=== PATIENT | female | born 2000 | race Two or more races ===

== ENCOUNTER 2024-12-23 17:44 | Inpatient (IN) | payer OTHER ==
[~2024-12-23] VITALS: Ht 160 cm; Wt 49.9 kg
--- NOTE | 2024-12-23 17:55 | NUR ---
SE RECIBE PACIENTE ALERTA Y CONCIENTE X 3. EL MISMO REFIERE TENER INFECCION DE ORINA HACE 6 PARMAR, AL SEXTO JOAQUIM REFIERE NNEKA RODNEY EN LA ORINA. SE PROCEDE A RAMÓN S/V A LA PACIENTE Y SE UBICA.
--- NOTE | 2024-12-23 18:37 | NUR ---
PTE EVALUADA POR EL GISELLE INMAN QUIE ORDENA TRATAMEINTO LA CUAL SE EJECUTA. SE MANTIENE BAJO OBSERVACION.
[2024-12-23 18:39] LABS: BASO % 0.4 % (0.1-1.2); EOS # 0.08 (0.04-0.54); HEMATOCRIT 36.7 % (34.1-44.9); HEMOGLOBIN 12.4 g/dL (11.2-15.7); LYMPH # 1.86 (1.18-3.74); LYMPH % 22.3 % (19.3-53.1); MEAN CORPUSCULAR HEMOGLOBIN 28.8 pg (25.6-32.2); MONO # 0.64 (0.24-0.82); MONO % 7.7 % (4.7-12.5); NEUT # 5.73 (1.56-6.13); NEUT % 68.5 % (34.0-71.1); PLATELET COUNT 204 K/uL (163-369); RED CELL DISTRIBUTION WIDTH 11.1 % (11.6-14.4)
[2024-12-23 18:44] LABS: PH,URINE 5.5 (5.0-8.0); URINE APPEARANCE Turbid; URINE BACTERIA 2106.4 uL (0.0-1933); URINE BILIRRUBIN Negative (NEGATIVE); URINE BLOOD Large; URINE COLOR Yellow; URINE EPITHELIAL CELLS 16.6 uL (0.0-38.8); URINE GLUCOSE Negative (NEGATIVE); URINE KETONE Negative (NEGATIVE); URINE LEUKOCYTE Large; URINE NITRATE Negative; URINE PROTEIN 30 (NEGATIVE)
[2024-12-23 18:45] LABS: URINE WBC > 5548.3 uL (0.0-23.2)
[2024-12-23 19:01] LABS: BILIRUBIN TOTAL 0.23 mg/dL (0.3-1.2); CALCIUM 8.6 mg/dL (8.5-10.1); CREATININE SERUM 0.77 mg/dL (0.55-1.02); GFR 91.34; GLOBULINA 3.6 G/DL (2.4-3.5); POTASSIUM 4.16 mEq/L (3.5-5.1); TOTAL PROTEIN 7.6 gm/dL (6.4-8.2)
[2024-12-23] MEDS ORDERED: CEFTRIAXONE SODIUM 2,000 MG VIAL ONE (19:57)
[2024-12-23] MEDS ORDERED: CEFTRIAXONE SODIUM 2,000 MG VIAL IV ONE (20:00)
[2024-12-23] MEDS ORDERED: KETOROLAC TROMETHAMINE 30 MG VIAL IV ONE (20:00)
[2024-12-23] MEDS ORDERED: MORPHINE SULFATE 2 MG/ML SYRINGE IV ONE (20:00)
--- NOTE | 2024-12-23 20:24 | NUR ---
PTE SE LE YENNIFER MUESTRA DE RODNEY Y SE LE ADMINISTRA MEDICMANTOS PARA EL DOLOR DE MORFINA. SE MANTIENE EN ESPERA DE ESTUDIO DE CT SCAN.
[2024-12-23] MEDS ORDERED: RINGERS SOLUTION,LACTATED 1,000 ML IV SCH (23:30)
[2024-12-23] MEDS ORDERED: ACETAMINOPHEN 500 MG GEL..CAP PO PRN (23:30)
[2024-12-23] MEDS ORDERED: PHENAZOPYRIDINE HCL 100 MG TABLET PO ONE (23:30)
[2024-12-24 02:58] VITALS: BP 116/76
[2024-12-24 04:08] LABS: INR 0.95; PARTIAL THROMBOPLASTIN TIME 28.5 SECONDS (22.0-34.0); PROTHROMBIN TIME 10.4 SECONDS (9.0-11.5)
[2024-12-24 05:30] VITALS: BP 100/56; O2SAT 98
[2024-12-24 07:59] VITALS: BP 94/61
[2024-12-24] MEDS ORDERED: FAMOTIDINE/PF 20 MG in 0.9 % SODIUM CHLORIDE 8 ML IV PUSH SCH (09:00)
[2024-12-24] MEDS ORDERED: CEFTRIAXONE SODIUM 2,000 MG in 0.9 % SODIUM CHLORIDE 100 ML IV SCH (09:00)
[2024-12-24 17:33] VITALS: BP 105/68; O2SAT 100
[2024-12-25 02:42] VITALS: BP 92/55; O2SAT 96
[2024-12-25 07:51] VITALS: BP 99/64
[2024-12-25 17:54] VITALS: BP 104/61; O2SAT 96
[2024-12-26 01:33] VITALS: BP 98/57; O2SAT 97
[2024-12-26] MEDS ORDERED: LEVOFLOXACIN250 MG PO (07:55)
[2024-12-26] MEDS ORDERED: INTESTINEX680 M1 PO (07:56)
[2024-12-26 08:50] VITALS: BP 107/68
== END 2024-12-26 09:04 | disposition home or self-care (01) | DRG 690 ==
LOC: ER 18:33 → MEDJ 23:29
PROVIDERS: General Practice; Preventive Medicine Public Health & General Preventive Medicine; ADMIT Internal Medicine; ATTEND Internal Medicine
PROC: BW21ZZZ Computerized Tomography (CT Scan) of Abdomen and Pelvis (ICD-10-PCS; principal; 2024-12-23)
PROC: BW4GZZZ Ultrasonography of Pelvic Region (ICD-10-PCS; 2024-12-24)
DX: N39.0 Urinary tract infection, site not specified (principal); B96.20 Unspecified Escherichia coli [E. coli] as the cause of diseases classified elsewhere; N20.0 Calculus of kidney